=== PATIENT | female | born 1970 | race Hispanic/Latino ===

== ENCOUNTER 2025-03-12 06:57 | Day surgery (SDC) | payer BC ==
[2025-03-10 12:10] LABS: IMMATURE GRANULOCYTE ABSOLUTE 0.02 K/uL (0-1); NUCLEATED RED BLOOD CELLS 0.0 % (0.0-0.19); PLATELET COUNT (AUTO) 299 K/uL (130-400); RED BLOOD CELL COUNT(AUTO) 5.03 MIL/uL (4.00-5.50); RED CELL DISTRIBUTION WIDTH 13.4 % (11.0-15.5); WHITE BLOOD COUNT (AUTO) 6.4 K/uL (4.8-10.8)
[2025-03-10 12:19] LABS: CREATININE 0.8 mg/dL (0.5-1.0); GLOMERULAR FILTR. RATE CALC 88.0 mL/min (>90); GLUCOSE,RANDOM 105.0 mg/dL (70-105); SODIUM SERUM 141.0 mmol/L (136-145); UREA NITROGEN, BLOOD 8.0 mg/dL (7-18)
[2025-03-10 12:20] LABS: INR 0.97 (0.85-1.15)
[2025-03-10 12:35] VITALS: BP 123/75; PULSE 74; RESP 13; TEMP 98
--- NOTE | 2025-03-10 14:19 | EKG ---
[facility] Test Date: 2025-03-10 Test Time: 12:53:18 Pat Name: CELESTE BROWN Department: [facility] Room: Gender: F [employer] Administrator: [id number] : 1970 Requested By: KAROLINA BENITEZ Order Number: [id number] Reading MD: Tristen Mccarthy Measurements Intervals [place] Rate: 78 P: 56 UT: 125 QRS: 21 QRSD: 79 T: 57 QT: 392 QTc: 446 Interpretive Statements Sinus rhythm No previous ECG available for comparison Electronically Signed On 03-10-2025 19:23:06 SCIENTIFIC MANAGER by Tristen Mccarthy Please click the below link to view image of tracing.
[~2025-03-12] VITALS: Ht 160 cm; Wt 63.4 kg
[2025-03-12] VITALS (17 sets, daily range): BP systolic 100–146; BP diastolic 59–81; PULSE 56–78; RESP 13–17; TEMP 97.1–97.7
[~2025-03-12 06:57] MED LIST: EZET10TA80 PO; LEVO125C5 PO; TIRZ5PEN SQ
[2025-03-12] MEDS ORDERED: 0.9%NACL 1000ML 1,000 ML IV ONE (07:09)
[2025-03-12] MEDS ORDERED: PROMETHAZINE HCL 25 MG/ML 1ML AMPULE IM PRN (07:30)
[2025-03-12] MEDS ORDERED: INDOCYANINE GREEN 25 MG VIAL IJ ONE (08:26)
[2025-03-12] MEDS ORDERED: MIDAZOLAM HCL 1 MG/ML 2ML VIAL ONE (11:00)
[2025-03-12] MEDS ORDERED: SUCCINYLCHOLINE CHLORIDE 20 MG/ML 10 ML VIAL ONE (11:00)
[2025-03-12] MEDS ORDERED: LIDOCAINE PF 100MG/5ML (2%) SYRINGE 5ML ONE (11:00)
[2025-03-12] MEDS: INDOCYANINE GREEN 25 MG VIAL IJ ONE (11:08)
[2025-03-12] MEDS ORDERED: GLYCOPYRROLATE 0.2 MG/ML 5 ML VIAL ONE (12:24)
[2025-03-12] MEDS ORDERED: NEOSTIGMINE METHYLSULFATE 1MG/ML IV ONE (12:24)
--- NOTE | 2025-03-12 13:10 | PN ---
GENERAL SURGERY PROGRESS NOTE Date/Time Patient Seen: [03/12/2025 at 1:10 p.m. ] Problem List: [ ] Interval History: [Postop day 0. Pain tolerable with the p.r.n. medication. ] Physical Examination: GENERAL: [No acute distress.] ABD: [Incisions clean, dry and intact, Dermabond in place Vital Signs (last 8hr) Date Time Temp Pulse Resp B/P (MAP) Pulse Ox O2 Delivery O2 Flow Rate FiO2 03/12/25 12:45 97.2 64 13 141/73 100 Nonrebreathing Mask 10.0 03/12/25 07:00 97.3 78 17 137/81 100 Room Air 21 Laboratory: [ ] Chemistry Labs: Test 03/12/25 07:31 Range/Units Whole Blood Glucose 90 70-110 MG/DL Diagnostics / Radiology: [Copy/Paste Echos/Imaging Report here] Impression and Plan: [Plan is for discharge home in the next few hours as long as patient tolerating p.o., ambulatory and pain under control. Discussed with the patient and family. They understand and agree. ] YAMILKA BENITEZ PAC Mar 12, 2025 13:10
--- NOTE | 2025-03-12 13:23 | OP ---
Operative Note: DATE OF PROCEDURE: 03/12/25 SURGEON: KAROLINA BENITEZ MD ENVIRONMENTAL CONTROL ADMINISTRATOR: Tyshawn Benitez MD p.a. C ANESTHESIA: General and local ANESTHESIOLOGIST/MINING MANAGER: [facility] PREOPERATIVE DIAGNOSIS: Symptomatic cholelithiasis POSTOPERATIVE DIAGNOSIS: As above SYNOPSIS: Cholecystectomy with IC green cholangiogram performed without incident PROCEDURE: Robotic assisted cholecystectomy with IC green intraoperative cholangiogram ESTIMATED BLOOD LOSS: Minimal, less than 30 cc INDICATIONS: As above DESCRIPTION OF PROCEDURE: After standard precautions and preparations were undertaken a Veress needle and optical trocar were used to enter the abdominal cavity. All other instruments were placed under direct vision. The robotic system was docked in the standard fashion. We began our dissection by elevating the gallbladder cephalad and working around the infundibulum. Eventually we are able to achieve a critical view of safety by identifying a single cystic duct and single cystic artery entering the gallbladder infundibulum. We confirmed this anatomy utilizing IC green and firefly visual technology. With this technology we are able to eliminate the ductal system tracing from the liver through the common hepatic and common bile ducts and the junction with the cystic duct. Once the anatomy was confirmed we felt comfortable placing our clips and dividing the structures. We used monopolar cautery to remove the gallbladder from the gallbladder fossa attachments and then placed the specimen in an Endo-Catch bag. Specimen was removed from the abdominal cavity and the fascia was closed to prevent future hernia. to ending the case all instrument counts were verified as correct including needles and sponges. The patient tolerated the procedure well. KAROLINA BENITEZ MD Mar 12, 2025 13:23
--- NOTE | 2025-03-12 13:46 | NUR ---
POST-OP SURGERY 4 INCISIONS TO MID LOWER ABDOMEN. DERMABOND TO ALL 4 INCISIONS. NO ACTIVE BLEEDING OR DRAINAGE. NO REDNESS OR SWELLING NOTED. ALL 4 INCISIONS DRY AND INTACT. ABDOMEN SOFT TO TOUCH PATIENT CAN WIGGLE TOES.
== END 2025-03-12 14:24 | disposition home or self-care (01) ==
LOC: DAH 06:57
PROVIDERS: ATTEND Surgery
DX: K80.12 Calculus of gallbladder with acute and chronic cholecystitis without obstruction (principal); K21.9 Gastro-esophageal reflux disease without esophagitis; E11.9 Type 2 diabetes mellitus without complications; E03.9 Hypothyroidism, unspecified; E78.00 Pure hypercholesterolemia, unspecified; Z79.01 Long term (current) use of anticoagulants; Z79.84 Long term (current) use of oral hypoglycemic drugs; Z79.899 Other long term (current) drug therapy; Z98.890 Other specified postprocedural states
CPT/HCPCS: 47563; S2900; 36415; 80048; 82948; 84703; 85025; 85610; 85730; 86850; 86900; 86901; 88304; 93005; J0330; J1100; J1885; J2003; J2250; J2270; J2405; J2704; J2710; J3010; J3490; J7030; A4213; A4215; A4216; A4221; A4222; A4223; A4600; A4663; A4930; A6260; J0665; J0690